=== PATIENT | female | born 1960 | race Two or more races ===

== ENCOUNTER 2024-12-09 15:52 | Emergency (ER) | payer MEDICAID, OTHER ==
[~2024-12-09] VITALS: Ht 157.5 cm; Wt 44.5 kg
[2024-12-09 16:22] VITALS: TEMP 98.1
[2024-12-09 17:04] LABS: PLATELET COUNT (AUTO) 297 K/uL (150-450); RED BLOOD CELL COUNT(AUTO) 4.09 MIL/uL (4.0-5.2); RED CELL DISTRIBUTION WIDTH 13.9 % (11.5-15.0); WHITE BLOOD COUNT (AUTO) 13.3 K/uL (4.3-11.0)
[2024-12-09] MEDS ORDERED: LORAZEPAM INJ 2 MG/ML VIAL ONE (17:10)
[2024-12-09 17:19] LABS: CALCIUM, SERUM 8.4 mg/dL (8.5-10.1); CREATININE 1.1 mg/dL (0.6-1.3); SODIUM SERUM 139 mmol/L (136-145); UREA NITROGEN, BLOOD 22 mg/dL (7-18)
[2024-12-09 17:19] LABS: APPEARANCE,URINE CLEAR (CLEAR); BLOOD, URINE NEGATIVE Ery/uL (NEGATIVE); LEUKOCYTE ESTERASE ,URINE NEGATIVE (NEGATIVE); NITRITE, URINE NEGATIVE (NEGATIVE); UGLUCOSE NEGATIVE (NEGATIVE)
[2024-12-09] MEDS: IV NS 0.9% 1,000 ML BAG IV ONE (17:20)
[2024-12-09] MEDS: LORAZEPAM 4 MG/ML VIAL IV ONE (17:20)
[2024-12-09 17:21] LABS: BARBITURATE, URINE NEGATIVE (NEGATIVE); BENZODIAZEPINE, URINE NEGATIVE (NEGATIVE); CANNABINOID, URINE NEGATIVE (NEGATIVE); COCCAINE, URINE NEGATIVE (NEGATIVE); OPIATE, URINE NEGATIVE (NEGATIVE)
[2024-12-09 17:22] LABS: AMPHETAMINE, URINE POSITIVE (NEGATIVE)
[2024-12-09 17:23] LABS: ASPARTATE AMINOTRANSFERASE 27 U/L (15-37); TOTAL PROTEIN, SERUM 7.3 g/dL (6.4-8.2)
[2024-12-09 17:35] LABS: ADD URINE CULTURE NO
[2024-12-09] MEDS ORDERED: FLUO40CA8 PO (18:30)
[2024-12-09] MEDS ORDERED: ARIP2TAB3 PO (18:30)
[2024-12-09] MEDS ORDERED: ALPR1TAB7 PO (18:30)
[2024-12-09] MEDS ORDERED: ACETAMINOPHEN 325 MG TABLET PO PRN (20:00)
[2024-12-09] MEDS ORDERED: POTASSIUM CHLORIDE 20 MEQ TAB.PRT.SR PO ONE (20:00)
[2024-12-09] MEDS ORDERED: Z GUARD REMEDY 4 OZ OINT TP PRN (20:00)
[2024-12-09] MEDS ORDERED: MAGNESIUM HYDROXIDE 30 ML UDC PO PRN (20:00)
[2024-12-09] MEDS ORDERED: IV NS 0.9% 1,000 ML IV PRN (20:00)
[2024-12-09] MEDS ORDERED: MAG HYDROX/AL HYDROX/SIMETH 30 ML UDC PO PRN (20:00)
[2024-12-09] MEDS ORDERED: ONDANSETRON HCL/PF 4 MG/2 ML VIAL IVP PRN (20:00)
[2024-12-09] MEDS ORDERED: ALPRAZOLAM 0.5 MG TABLET PO PRN (20:00)
[2024-12-09] MEDS: POTASSIUM CHLORIDE 20 MEQ TAB.PRT.SR PO ONE (20:05)
[2024-12-09 21:00] VITALS: BP 129/70; O2SAT 99
[2024-12-10] MEDS ORDERED: FLUOXETINE HCL 20 MG CAPSULE PO SCH (09:00)
== END 2024-12-09 21:34 | disposition short-term general hospital (02) ==
LOC: ER 16:07
DX: R55 Syncope and collapse (principal); F41.9 Anxiety disorder, unspecified; F15.10 Other stimulant abuse, uncomplicated; F41.1 Generalized anxiety disorder; E87.6 Hypokalemia; E86.0 Dehydration; R62.7 Adult failure to thrive; Z79.899 Other long term (current) drug therapy
CPT/HCPCS: 99285; 93307; 96374; 71045; 96361; 93005; 85025; 80048; 80076; 36415; 84443; 84484; 87081; 80143; 80307; 81001; J2060